=== PATIENT | male | born 1980 | race Caucasian/White ===

== ENCOUNTER 2022-09-25 16:57 | Emergency (ER) | payer OTHER ==
[~2022-09-25] VITALS: Ht 175.3 cm; Wt 86.2 kg
[2022-09-25] MEDS ORDERED: NEOPOLHCSU LEFTEAR (17:10)
== END 2022-09-25 17:11 | disposition home or self-care (01) ==
LOC: ER 16:57
DX: H60.92 Unspecified otitis externa, left ear (principal)
CPT/HCPCS: 99282